=== PATIENT | male | born 1960 | race Caucasian/White ===

== ENCOUNTER 2021-05-07 06:10 | Day surgery (SDC) | payer BC ==
[2021-05-01 14:37] VITALS: BMI 36.5
[2021-05-07] MEDS ORDERED: MIDAZOLAM HCL 2 MG/2 ML SINGLE DOSE VIAL ONE (07:06)
[2021-05-07] MEDS ORDERED: ROPIVACAINE HCL 0.5% 30ML VIAL ONE (07:06)
[2021-05-07] MEDS ORDERED: LIDOCAINE HCL 2% (20ML MULTI-DOSE VIAL) ONE (07:13)
[2021-05-07] MEDS ORDERED: PROPOFOL 20 ML ONE ×2 (07:17→08:01)
[2021-05-07] MEDS ORDERED: EPINEPHrine 1:1,000 1 MG/1 ML - 30ML VIAL (INJECTION) ONE (07:31)
[2021-05-07] MEDS ORDERED: EPHEDRINE SULFATE/0.9% NACL/PF 50 MG/10 ML SYRINGE NR ONE (08:30)
[2021-05-07] MEDS ORDERED: ONDANSETRON 4 MG/2 ML VIAL IVPUSH PRN (09:05)
[2021-05-07] MEDS ORDERED: traMADol HCL 50 MG TABLET PO PRN (09:05)
[2021-05-07] MEDS ORDERED: oxyCODONE HCL 5 MG TABLET PO PRN (09:05)
[2021-05-07] MEDS ORDERED: LACTATED RINGERS SOLUTION 1,000 ML IV SCH (09:15)
[2021-05-07] MEDS ORDERED: ACETAMINOPHEN 325 MG TABLET (FP) PO SCH (10:00)
[2021-05-07 10:03] VITALS: BP 138/62; PULSE 84; TEMP 98.1
== END 2021-05-07 10:45 | disposition home or self-care (01) ==
LOC: FASU 06:10
PROVIDERS: ATTEND Orthopaedic Surgery Sports Medicine
PROC: 0RBK4ZZ Excision of Left Shoulder Joint, Percutaneous Endoscopic Approach (ICD-10-PCS; principal; 2021-05-07 08:21)
DX: M75.42 Impingement syndrome of left shoulder (principal); M75.112 Incomplete rotator cuff tear or rupture of left shoulder, not specified as traumatic; M75.02 Adhesive capsulitis of left shoulder
CPT/HCPCS: 88304-TC; 94760